=== PATIENT | female | born 1965 | race Caucasian/White ===

== ENCOUNTER 2019-05-30 16:20 | Inpatient (IN) ==
[2019-05-30] MEDS ORDERED: CLINDAMYCIN INJ 900 MG in PREMIX 1 EACH IV STA (17:09)
[2019-05-30] MEDS ORDERED: methylPREDNISolone SOD SUC 125 MG/2 ML VIAL IV STA (17:09)
[2019-05-30 18:08] LABS: Basophils # 0.1 10*3/uL (0.0-0.2); Basophils % 0.4 % (0.0-0.8); Eosinophils # 0.1 10*3/uL (0.0-0.87); Eosinophils % 0.7 % (0.00-10.9); Hematocrit 36.8 VOL% (35.7-47.0); Hemoglobin 11.8 GM/DL (12.0-16.0); Immature Granulocytes Absolute 0.12 #; Mean Corpuscular HGB Conc 32.1 GM/DL (32-36); Mean Corpuscular Volume 84.8 FL (87-102); Neutrophils % 67.9 % (38.7-73.9); Platelet Count 264 T/CUMM (130-400); Red Blood Count 4.34 MC/CUMM (3.8-5.5); Red Cell Distribution Width 14.3 % (9.3-17.3); White Blood Count 12.4 T/CUMM (4-12)
[2019-05-30 18:25] LABS: INR 0.9; PT Patient Result 9.3 SECS
[2019-05-30 18:37] LABS: Alanine Aminotransferase 21 U/L (13-56); Albumin 3.2 G/DL (3.4-5.0); Alkaline Phosphatase 81 U/L (45-117); Aspartate Amino Transferase 16 U/L (0-37); Bilirubin,Total < 0.39 MG/DL (0.2-1.0); Blood Urea Nitrogen 12 MG/DL (7-18); Calcium 8.8 MG/DL (8.5-10.1); Glucose 101 MG/DL (74-106); Osmolality,Calculated 276.5 MOS/KG (273-304); Total Protein 7.4 G/DL (6.4-8.3)
[2019-05-30] MEDS ORDERED: ONDANSETRON 4 MG/2 ML VIAL IV PRN (19:36)
[2019-05-30] MEDS: PIPERACILLIN/TAZOBACTAM 3,375 MG in SODIUM CHLORIDE 0.9% 100 ML IV SCH (22:50)
[2019-05-30] MEDS ORDERED: IBUPROFEN 600 MG TABLET PO PRN (22:58)
[2019-05-30] MEDS ORDERED: KETOROLAC 30 MG/1 ML VIAL IV PRN (22:59)
[2019-05-31] MEDS: SIMVASTATIN 20 MG TABLET PO SCH ×2 (00:53→21:42)
[2019-05-31] MEDS: MESALAMINE 250 MG CAPSULE PO SCH ×2 (00:53→21:41)
[2019-05-31] MEDS: VANCOMYCIN INJ 1,000 MG in SODIUM CHLORIDE 0.9% 250 ML IV SCH ×2 (03:39→16:00)
[2019-05-31] MEDS ORDERED: LIDOCAINE 2%/EPI 20 ML VIAL MISC INJ STA (07:07)
[2019-05-31] MEDS ORDERED: TRIAMTERENE/HCTZ 37.5-25 MG CAPSULE PO SCH (09:00)
[2019-05-31] MEDS ORDERED: ESTRADIOL 2 MG TABLET PO SCH (09:00)
[2019-05-31] MEDS ORDERED: PANTOPRAZOLE 40 MG TABLET PO SCH (09:00)
[2019-05-31] MEDS: LOPERAMIDE 2 MG CAPSULE PO PRN ×2 (09:26→23:41)
[2019-05-31] MEDS: MUPIROCIN 2% OINT 22 GM TUBE TOP SCH ×3 (09:26→21:41)
[2019-05-31] MEDS: LACTOBACILLUS ACIDOPHILUS/BULGARICUS CAPLET PO SCH (09:26)
[2019-05-31] MEDS: CITALOPRAM 20 MG TABLET PO SCH (09:26)
[2019-05-31] MEDS: PIPERACILLIN/TAZOBACTAM 3,375 MG in SODIUM CHLORIDE 0.9% 100 ML IV SCH ×2 (09:27→18:06)
[2019-06-01] MEDS: PIPERACILLIN/TAZOBACTAM 3,375 MG in SODIUM CHLORIDE 0.9% 100 ML IV SCH ×2 (00:54→09:03)
[2019-06-01] MEDS: LOPERAMIDE 2 MG CAPSULE PO PRN ×2 (04:39→08:28)
[2019-06-01] MEDS: VANCOMYCIN INJ 1,000 MG in SODIUM CHLORIDE 0.9% 250 ML IV SCH (04:39)
[2019-06-01 08:12] VITALS: BP 115/70
[2019-06-01] MEDS: LACTOBACILLUS ACIDOPHILUS/BULGARICUS CAPLET PO SCH (08:27)
[2019-06-01] MEDS: MUPIROCIN 2% OINT 22 GM TUBE TOP SCH (08:38)
[2019-06-01] MEDS: CITALOPRAM 20 MG TABLET PO SCH (08:39)
[2019-06-01] MEDS ORDERED: TRIAMTERENE/HCTZ 37.5-25 MG CAPSULE PO SCH (09:00)
[2019-06-01] MEDS ORDERED: PANTOPRAZOLE 40 MG TABLET PO SCH (09:00)
[2019-06-01] MEDS ORDERED: PENTASA 500 MG PO SCH (09:00)
[2019-06-01] MEDS ORDERED: ESTRADIOL 2 MG TABLET PO SCH (09:00)
[2019-06-01] MEDS ORDERED: SIMVASTATIN 40 MG TABLET PO SCH (21:00)
== END 2019-06-01 11:50 | disposition home or self-care (01) | DRG 155 ==
LOC: N.ED 16:20 → N.5E 19:35
PROVIDERS: ADMIT Otolaryngology; ATTEND Otolaryngology